=== PATIENT | male | born 1985 | race Hispanic/Latino ===

== ENCOUNTER 2021-04-12 23:39 | Emergency (ER) | payer BC ==
[2021-04-13] MEDS ORDERED: Acetaminophen 500 MG TAB ONE (00:47)
[2021-04-13] MEDS ORDERED: Albuterol 200 PUFF (6.7GM INHALER) ONE (01:33)
== END 2021-04-13 02:30 | disposition home or self-care (01) ==
LOC: ERS 23:39
DX: U07.1 COVID-19 (principal); J12.82 Pneumonia due to coronavirus disease 2019; Z87.891 Personal history of nicotine dependence
CPT/HCPCS: 71045; 93005